=== PATIENT | female | born 1990 | race Hispanic/Latino ===

== ENCOUNTER 2024-02-24 18:46 | Emergency (ER) | payer SELFPAY ==
[2024-02-24 18:53] VITALS: BP 148/94
[2024-02-24 19:30] LABS: Hematocrit 36.4 % (37.0-47.0); Hemoglobin 12.4 g/dL (12.0-16.0); Mean Corp Hgb Conc. 34.1 g/dL (33.0-37.0); Mean Corpuscular Hgb 28.2 pg (27.0-31.0); Mean Corpuscular Volume 82.7 fL (81.0-99.0); Mean Platelet Volume 11.3 fL (7.4-10.4); Platelet Count 192 10^3/uL (130-400); Red Cell Dist. Width 13.1 % (11.5-14.5); Urine Albumin Trace (Neg - Trace); Urine Bilirubin Negative (Negative); Urine Character Clear (Clear); Urine Color Yellow; Urine Glucose Negative (Negative); Urine Ketone Negative (Negative); Urine Leukocyte 2+ (Negative); Urine Nitrite Negative (Negative); Urine Occult Blood Negative (Negative); Urine Urobilinogen Negative (Neg - 1+)
[2024-02-24 19:36] LABS: Urine Squamous Cell >30 /LPF (Few)
[2024-02-24 19:37] LABS: Urine Bacteria Many (Negative); Urine Mucus Moderate; Urine Red Blood Cell 0-2 /HPF (0-2)
[2024-02-24 20:03] LABS: Blood Urea Nitrogen 12 mg/dl (7-17); Calcium 9.2 mg/dl (8.4-10.2); Carbon Dioxide 23 mmol/L (22-30); Chloride 101 mmol/L (98-107); Glucose 138 mg/dl (70-99); Sodium 138 mmol/L (135-145); eGFR > 60.00
[2024-02-24 20:56] VITALS: BP 129/71
[2024-02-24 21:00] VITALS: BP 97/80
--- NOTE | 2024-02-24 21:16 | ED.GENMED ---
History of Present Illness
General
Chief Complaint: Flank Pain
Source: patient and spouse
Exam Limitations: none
Time Seen by Provider: 02/24/24 21:02
Nursing documentation reviewed up to this point in time: agreed with
History of Present Illness
History of Present Illness:
33-year-old female who was seen at urgent care on 02/17 for lower abdominal and back pain, diagnosed with UTI and put on nitrofurantoin which she has been taking and has 3 pills left. She denies fever or chills. She denies abdominal pain now. She
denies burning frequency or urgency to urinate. She is mainly here because she continues with pain across her lower back that started a week before she was diagnosed with a UTI. The urgent care personnel informed her of the danger of 'the
infection getting up into my kidney.' She is here because she just wants to be sure that the infection is not getting into her kidney.
She states since this morning she has had pain between both eyes and mild nausea.
She denies change in vision. She denies headache at this time but feels 'a little' pain when she presses on her upper eyelids. Denies , she has had a tubal ligation.
Denies n/v/d/c. Denies CP or SOB.
Past History
Past History
ED Past Medical History: None
ED Past Surgical History: None
Social History
Tobacco: Non-smoker
Alcohol: None
Personal:
Living: with family
Employment: Not employed
Review of Systems
Review of Systems
Allergies reviewed?: Yes
All Other Systems: ROS reviewed and negative except as documented in HPI and ROS
Constitutional: Denies fever or chills
EENT: Reports other (Denies blurry or double vision. )
Respiratory: Denies trouble breathing
Cardiac: Denies chest pain
ABD/GI: Reports nausea (mild, declined when nausea medication offered 'it's not that bad'); Denies abdominal pain, vomiting or diarrhea
: Denies dysuria, frequency, flank pain, difficulty voiding or urgency
Musculoskeletal: Reports no symptoms
Skin: Reports no symptoms and itching
Neurological: Reports no symptoms; Denies dizzy, headache or numbness
Phy Exam
Physical Exam
Physical Exam:
GENERAL: No acute distress. A&Ox3.
CONSTITUTIONAL: Afebrile.
EYES: PERRL, conjunctivae normal, PERRLA, good red reflex bilaterally, normal equal pressure to palpation.
ENMT: moist mucus membranes, Pharynx nl
RESPIRATORY: Regular respirations, nonlabored, lungs clear.
CARDIOVASCULAR: Regular rate and rhythm, no murmurs, no rubs.
GI: Soft, nontender, normal BS
MUSCULOSKELETAL: Tender mid to left lower back, Full ROM. Moves with ease. Well perfused.
SKIN: Warm, dry, normal
PSYCH: Normal mood and affect. Well kept, interactive and appropriate
NEUROLOGIC: Awake, alert and oriented. No focal neurological deficits
Course
Orders/Labs/Results
Orders:
Orders
02/24/24 19:07
Basic Metabolic Panel Urgent
Complete Blood Count/No Diff Urgent
Urinalysis Reflex To Culture Urgent
Date Specimen was Collected: 02/24/24
Time Specimen was Collected: 18:57
Urine Microscopic Reflex Cult Urgent
Urine Culture Urgent
MARIA L Source: U
Specimen Description:
Date Specimen was Collected: 02/24/24
Time Specimen was Collected: 18:57
02/24/24 21:33
Visual Acuity- Treatment ONCE
Abnormal Lab Results
02/24/24
19:07
Hct 36.4 L %
(37.0-47.0)
MPV 11.3 H fL
(7.4-10.4)
Glucose 138 H mg/dl
(70-99)
Leukocyte Esterase Rfl 2+ A
(Negative)
Urine Bacteria (Reflex) Many A
(Negative)
02/24/24 19:07
02/24/24 19:07
Vital Signs
Initial and Last Documented VS:
Initial Vital Signs
Temp Pulse Resp BP Pulse Ox
98.2 F 64 22 148/94 100
02/24/24 18:53 02/24/24 18:53 02/24/24 18:53 02/24/24 18:53 02/24/24 18:53
Last Documented Vital Signs
Temp Pulse Resp BP Pulse Ox
98.2 F 61 17 97/80 95
02/24/24 18:53 02/24/24 21:00 02/24/24 21:00 02/24/24 21:00 02/24/24 21:00
MDM/Problems Addressed
Differential Diagnosis Includes:
musculoskeletal pain, pyelonephritis, UTI, kidney stone
MDM/Problems Addressed:
33-year-old female who was seen at urgent care on 02/17 for lower abdominal and back pain, diagnosed with UTI and put on nitrofurantoin which she has been taking and has 3 pills left. She denies fever or chills. She denies abdominal pain now. She
denies burning frequency or urgency to urinate. She is mainly here because she continues with pain across her lower back that started a week before she was diagnosed with a UTI. The urgent care personnel informed her of the danger of 'the
infection getting up into my kidney.' She is here because she just wants to be sure that the infection is not getting into her kidney.
She states since this morning she has had pain between both eyes and mild nausea.
She denies change in vision. She denies headache at this time but feels 'a little' pain when she presses on her upper eyelids. Denies , she has had a tubal ligation.
Denies n/v/d/c. Denies CP or SOB.
CBC, CMP unremarkable.
U/A 2+ leukocytes, many bacteria, otherwise negative
Pain is reproducible mid to left lower back, full ROM of spine, suspect musculoskeletal low back pain.
Informed to finish antibiotic for UTI
Discussed signs of pyelonephritis and reassured she does not have this.
She and her feel better just knowing this and are comfortable being discharged.
Pain behind eyes and mild nausea just started this a.m. and may be mild viral illness, seasonal allergy, need for new glasses. She has eye doctor appointment next month
*Critical Care Note
Total Time (30-74mins, 75-104mins- exclusive of procedures): Not Applicable
ED Attending Note
-
Portions of this chart may have been created with voice recognition software.� Occasional wrong word or��sound alike� substitutions may have occurred due to the inherent limitations of voice recognition software.
Discharge Plan
Departure
Patient Disposition: Home (Routine Discharge)
Date of Disposition: 02/24/24
Time of Disposition: 21:26
Patient with high blood pressure during this ER visit?: No
Condition: Good
Discharge Problem:
Low back pain
Instructions: Low back pain in adults, Back Exercises
Prescriptions:
No Action
No Current Medications
0
Referrals:
NONE,* [Family Provider] -
Activity Restrictions/Additional Instructions:
As we discussed, nothing worrisome in your workup here today. Specifically no sign of kidney infection
Your urinary tract infection seems to be clearing up, finish the antibiotic and drink plenty of fluids
Keep your appointment with your eye doctor next month, if you need a new eyeglass prescription, this may help relieve the pressure in your eyes
Interventions
Interventions:
*Risk Screen - Suicide Last Done: 02/24/24 18:53
*General Assessment Last Done: 02/24/24 20:58
*Neglect/Abuse Screening Last Done: 02/24/24 18:53
ED- Fall Risk Assessment Last Done: 02/24/24 21:43
*ED COVID-19 Vaccine History Last Done: 02/24/24 20:58
*Nursing Disposition Last Done: 02/24/24 21:43
QV-Sztodt-Llahpnplws Assessment Last Done: 02/24/24 20:58
ED-Female Genitourinary Assessment Last Done: 02/24/24 20:58
Discharge Date and Time
Discharge Date/Time: 02/24/24 21:44
Print Language: SWEDISH
== END 2024-02-24 21:44 | disposition home or self-care (01) ==
LOC: EMR 18:46
PROVIDERS: EMERGENCY PHYSICIAN Student in an Organized Health Care Education/Training Program
DX: M54.50 Low back pain, unspecified (principal); N39.0 Urinary tract infection, site not specified; Z79.2 Long term (current) use of antibiotics
CPT/HCPCS: 99283; 80048; 81003; 81015; 85027; 87086

== ENCOUNTER → 2024-08-20 10:47 | Outpatient (REF) | payer OTHER, SELFPAY ==
[2024-08-20 11:57] LABS: % Basophils 0.8 % (0-2); % Eosinophils 3.7 % (0-6); % Immature Granulocytes 0.3 % (0-0.5); % Lymphocytes 33.5 % (20.5-51.1); % Monocytes 6.6 % (1.7-9.3); % Neutrophils 55.1 % (42.2-75.2); Absolute Basophils 0.1 10^3/uL (0-0.2); Absolute Eosinophils 0.3 10^3/uL (0-0.7); Absolute Lymphocytes 2.6 10^3/uL (1.2-3.4); Absolute Monocytes 0.5 10^3/uL (0.1-0.6); Absolute Neutrophils 4.3 10^3/uL (1.4-6.5); Hematocrit 39.2 % (37.0-47.0); Hemoglobin 12.9 g/dL (12.0-16.0); Mean Corp Hgb Conc. 32.9 g/dL (33.0-37.0); Mean Corpuscular Volume 82.2 fL (81.0-99.0); Mean Platelet Volume 11.1 fL (7.4-10.4); Nucleated Red Blood Cells % 0 %; Platelet Count 213 10^3/uL (130-400); Red Blood Cell Count 4.77 10^6/uL (4.20-5.40); Red Cell Dist. Width 13.7 % (11.5-14.5); White Blood Cell Count 7.8 10^3/uL (4.8-10.8)
[2024-08-20 13:06] LABS: TSH Reflex To Free T4 0.69 uIU/ml (0.47-4.68)
[2024-08-20 13:17] LABS: ALT (SGPT) 17 U/L (0-35); AST (SGOT) 22 U/L (14-36); Albumin 5.1 g/dl (3.5-5.0); Alkaline Phosphatase 78 U/L (38-126); Blood Urea Nitrogen 14 mg/dl (7-17); Calcium 9.8 mg/dl (8.4-10.2); Carbon Dioxide 23 mmol/L (22-30); Chloride 104 mmol/L (98-107); Glucose 101 mg/dl (70-99); HDL Cholesterol 45 mg/dl; Iron 81 ug/dl (37-170); LDL Cholesterol, Calculated 93 mg/dl; Potassium 4.3 mmol/L (3.5-5.1); Sodium 141 mmol/L (135-145); Total Bilirubin 0.5 mg/dl (0.2-1.3); Total Cholesterol 155 mg/dl (50-199); Total Protein 8.1 g/dl (6.3-8.2); Triglyceride 85 mg/dl (10-149); Very Low Density Lipoprotein 17 mg/dl (0-30); eGFR > 60.00
[2024-08-20 14:03] LABS: Glycohemoglobin (HgbA1c) 6.3 % (4.0-5.6)
== END ==
LOC: CLINIC 10:47
PROVIDERS: ATTENDING PHYSICIAN Family Medicine
DX: R73.9 Hyperglycemia, unspecified (principal); N92.0 Excessive and frequent menstruation with regular cycle; Z13.220 Encounter for screening for lipoid disorders
CPT/HCPCS: 36415; 80053; 80061; 83036; 83540; 84443; 85025

== ENCOUNTER → 2025-05-03 10:11 | Outpatient (REF) | payer OTHER, SELFPAY ==
[2025-05-03 12:18] LABS: ALT (SGPT) 17 U/L (0-35); AST (SGOT) 21 U/L (14-36); Albumin 4.5 g/dl (3.5-5.0); Alkaline Phosphatase 91 U/L (38-126); Blood Urea Nitrogen 11 mg/dl (7-17); Calcium 9.2 mg/dl (8.4-10.2); Carbon Dioxide 25 mmol/L (22-30); Chloride 102 mmol/L (98-107); Glucose 151 mg/dl (70-99); HDL Cholesterol 47 mg/dl; LDL Cholesterol, Calculated 96 mg/dl; Potassium 4.3 mmol/L (3.5-5.1); Sodium 135 mmol/L (135-145); Total Protein 7.6 g/dl (6.3-8.2); Very Low Density Lipoprotein 27 mg/dl (0-30); eGFR > 60.00
[2025-05-03 12:39] LABS: Glycohemoglobin (HgbA1c) 7.5 % (4.0-5.9)
== END ==
LOC: REG 10:11
PROVIDERS: ATTENDING PHYSICIAN Nurse Practitioner Family
DX: Z86.32 Personal history of gestational diabetes (principal)
CPT/HCPCS: 36415; 80053; 80061; 83036